=== PATIENT | female | born 1945 | race Caucasian/White ===

== ENCOUNTER 2020-12-19 08:00 | Outpatient (CLI) | payer BC, OTHER ==
[2020-12-22 13:21] LABS: FECAL OCCULT BLOOD (FIT) NEGATIVE (NEGATIVE)
== END 2020-12-19 23:59 | disposition home or self-care (01) ==
LOC: LAB.F 08:00
PROVIDERS: ATTEND Internal Medicine
DX: Z12.11 Encounter for screening for malignant neoplasm of colon (principal)
CPT/HCPCS: 82274

== ENCOUNTER 2021-02-08 09:01 | Outpatient (CLI) | payer BC ==
[2021-02-08 15:02] LABS: BASOPHILS % (AUTO) 0.6 %; EOSINOPHILS # (AUTO) 0.2 10^3/uL (0.0-0.7); EOSINOPHILS % (AUTO) 3.1 %; HCT - HEMATOCRIT 37.3 % (37.0-47.0); HGB - HEMOGLOBIN 11.4 g/dL (12.0-16.0); LYMPHOCYTES # (AUTO) 1.9 10^3/uL (1.5-3.5); LYMPHOCYTES % (AUTO) 29.1 %; MEAN CORPUSCULAR HEMOGLOBIN 27.5 pg (27.0-31.0); MEAN CORPUSCULAR HGB CONC 30.6 g/dL (32.0-36.0); MEAN CORPUSCULAR VOLUME 90.1 fL (81.0-99.0); MEAN PLATELET VOLUME 10.9 fL (7.9-10.8); MONOCYTES # (AUTO) 0.5 10^3/uL (0.0-1.0); MONOCYTES % (AUTO) 7.4 %; NEUTROPHILS # (AUTO) 3.9 10^3/uL (1.5-6.6); NEUTROPHILS % (AUTO) 59.5 %; PLT - PLATELET COUNT 255 10^3/uL (130-450); RED BLOOD COUNT 4.14 10^6/uL (4.20-5.40); RED CELL DISTRIBUTION WIDTH 12.7 % (12.0-15.0); WHITE BLOOD COUNT 6.5 x10^3/uL (4.8-10.8)
[2021-02-08 15:21] LABS: ALBUMIN 3.8 g/dL (3.2-5.5); ALBUMIN/GLOBULIN RATIO 1.1 (1.0-2.2); ALKALINE PHOSPHATASE 69 IU/L (42-121); ALT ALANINE AMINOTRANSFERASE 18 IU/L (10-60); AST ASPARTATE AMINOTRANSFERASE 20 IU/L (10-42); BILIRUBIN,TOTAL 0.7 mg/dL (0.2-1.0); BUN - BLOOD UREA NITROGEN 24 mg/dL (6-20); CALCIUM 9.3 mg/dL (8.5-10.3); CARBON DIOXIDE - CO2 26 mmol/L (21-32); CHLORIDE 99 mmol/L (101-111); CHOL/HDL RATIO 2.5 (<4.4); CHOLESTEROL 140 mg/dL; CREATININE 1.3 mg/dL (0.4-1.0); GFR - MDRD 40 (>89); GLUCOSE 89 mg/dL (70-100); HDL CHOLESTEROL 55 mg/dL; LDL CHOLESTEROL,CALCULATED 63 mg/dL; LDL/HDL RATIO 1.1 (<4.4); POTASSIUM 3.7 mmol/L (3.5-5.0); SODIUM 135 mmol/L (135-145); TOTAL PROTEIN 7.3 g/dL (6.7-8.2); TRIGLYCERIDES 112 mg/dL; VLDL CHOLESTEROL 22 mg/dL
[2021-02-08 15:25] LABS: CREATININE,URINE 148.4 mg/dL; MICROALBUM/CREATININE RATIO,UR 86.3 ug/mg (<30.0); MICROALBUMIN,URINE 12.8 mg/dL (0-300.0)
[2021-02-08 21:03] LABS: ESTIMATED AVERAGE GLUCOSE 117 mg/dL (70-100); HEMOGLOBIN A1c% 5.7 % (4.27-6.07)
== END 2021-02-08 09:02 | disposition home or self-care (01) ==
LOC: LAB.S 09:01
PROVIDERS: ATTEND Internal Medicine
DX: E11.9 Type 2 diabetes mellitus without complications (principal)
CPT/HCPCS: 36415; 80053; 80061; 82043; 82570; 83036; 83721; 85025

== ENCOUNTER 2021-05-07 15:14 | Outpatient (CLI) | payer BC ==
[2021-05-07 20:22] LABS: CALCIUM 9.8 mg/dL (8.5-10.3); CREATININE 1.4 mg/dL (0.4-1.0)
[2021-05-07 20:46] LABS: ESTIMATED AVERAGE GLUCOSE 126 mg/dL (70-100)
== END 2021-05-07 15:15 | disposition home or self-care (01) ==
LOC: LAB.S 15:14
PROVIDERS: ATTEND Nurse Practitioner
DX: E11.65 Type 2 diabetes mellitus with hyperglycemia (principal)
CPT/HCPCS: 36415; 80048; 83036

== ENCOUNTER 2021-09-13 09:48 | Outpatient (CLI) | payer BC ==
[2021-09-13 14:45] LABS: BASOPHILS % (AUTO) 0.4 %; EOSINOPHILS # (AUTO) 0.2 10^3/uL (0.0-0.7); EOSINOPHILS % (AUTO) 2.4 %; HCT - HEMATOCRIT 37.7 % (37.0-47.0); HGB - HEMOGLOBIN 12.3 g/dL (12.0-16.0); LYMPHOCYTES # (AUTO) 1.8 10^3/uL (1.5-3.5); LYMPHOCYTES % (AUTO) 25.1 %; MEAN CORPUSCULAR HEMOGLOBIN 29.6 pg (27.0-31.0); MEAN CORPUSCULAR HGB CONC 32.6 g/dL (32.0-36.0); MEAN CORPUSCULAR VOLUME 90.8 fL (81.0-99.0); MEAN PLATELET VOLUME 10.7 fL (7.9-10.8); MONOCYTES # (AUTO) 0.5 10^3/uL (0.0-1.0); MONOCYTES % (AUTO) 7.5 %; NEUTROPHILS # (AUTO) 4.5 10^3/uL (1.5-6.6); NEUTROPHILS % (AUTO) 64.2 %; PLT - PLATELET COUNT 225 10^3/uL (130-450); RED BLOOD COUNT 4.15 10^6/uL (4.20-5.40); RED CELL DISTRIBUTION WIDTH 12.5 % (12.0-15.0)
[2021-09-13 15:40] LABS: THYROID STIMULATING HORMONE 0.55 uIU/mL (0.34-5.60)
[2021-09-13 16:09] LABS: ALBUMIN 4.1 g/dL (3.2-5.5); ALBUMIN/GLOBULIN RATIO 1.4 (1.0-2.2); ALKALINE PHOSPHATASE 68 IU/L (42-121); ALT ALANINE AMINOTRANSFERASE 18 IU/L (10-60); AST ASPARTATE AMINOTRANSFERASE 19 IU/L (10-42); BILIRUBIN,TOTAL 0.8 mg/dL (0.2-1.0); BUN - BLOOD UREA NITROGEN 29 mg/dL (6-20); CALCIUM 10.1 mg/dL (8.5-10.3); CARBON DIOXIDE - CO2 28 mmol/L (21-32); CHLORIDE 103 mmol/L (101-111); CHOL/HDL RATIO 2.8 (<4.4); CHOLESTEROL 149 mg/dL; CREATININE 1.3 mg/dL (0.4-1.0); GFR - MDRD 40 (>89); GLUCOSE 104 mg/dL (70-100); HDL CHOLESTEROL 53 mg/dL; LDL CHOLESTEROL,CALCULATED 60 mg/dL; LDL/HDL RATIO 1.1 (<4.4); POTASSIUM 3.8 mmol/L (3.5-5.0); SODIUM 140 mmol/L (135-145); TOTAL PROTEIN 7.1 g/dL (6.7-8.2); TRIGLYCERIDES 179 mg/dL; VLDL CHOLESTEROL 36 mg/dL
[2021-09-14 05:10] LABS: HCV AB 0.1 s/co ratio (0.0-0.9)
== END 2021-09-13 09:49 | disposition home or self-care (01) ==
LOC: LAB.S 09:48
PROVIDERS: ATTEND Nurse Practitioner Family
DX: I10 Essential (primary) hypertension (principal); E78.5 Hyperlipidemia, unspecified; Z11.59 Encounter for screening for other viral diseases
CPT/HCPCS: 36415; 80053; 80061; 83721; 84443; 85025; 86803

== ENCOUNTER 2021-10-29 08:00 | Outpatient (CLI) | payer BC ==
--- NOTE | 2021-10-29 23:10 | XRAY Report ---
PROCEDURE: Wrist 3 View RT INDICATIONS: SPRAIN OF RIGHT WRIST TECHNIQUE: Three views of the wrist were acquired. COMPARISON: None FINDINGS: Bones: No fractures or dislocations. No suspicious bony lesions. 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 Soft tissues: No suspicious soft tissue calcifications. IMPRESSION: No fracture or acute finding identified. 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 Reviewed by: Hernando Dumont MD on 10/29/2021 11:09 PM PDT Approved by: Hernando Dumont MD on 10/29/2021 11:09 PM PDT Station ID: [id number]
== END 2021-10-29 23:59 | disposition home or self-care (01) ==
LOC: DI.S 08:00
PROVIDERS: ATTEND Emergency Medicine
DX: S63.521A Sprain of radiocarpal joint of right wrist, initial encounter (principal)

== ENCOUNTER 2022-04-23 07:40 | Outpatient (CLI) | payer BC ==
[2022-04-23 15:13] LABS: CALCIUM 10.2 mg/dL (8.5-10.3); CREATININE 1.4 mg/dL (0.4-1.0); POTASSIUM 3.9 mmol/L (3.5-5.0)
[2022-04-23 20:44] LABS: ESTIMATED AVERAGE GLUCOSE 128 mg/dL (70-100); HEMOGLOBIN A1c% 6.1 % (4.27-6.07)
== END 2022-04-23 07:41 | disposition home or self-care (01) ==
LOC: LAB.S 07:40
PROVIDERS: ATTEND Nurse Practitioner
DX: E11.65 Type 2 diabetes mellitus with hyperglycemia (principal)
CPT/HCPCS: 36415; 80048; 82043; 82570; 83036

== ENCOUNTER 2023-01-08 10:25 | Outpatient (CLI) | payer BC ==
[2023-01-08 14:44] LABS: BASOPHILS % (AUTO) 0.4 %; EOSINOPHILS # (AUTO) 0.2 10^3/uL (0.0-0.7); EOSINOPHILS % (AUTO) 2.3 %; HCT - HEMATOCRIT 42.8 % (37.0-47.0); HGB - HEMOGLOBIN 13.3 g/dL (12.0-16.0); LYMPHOCYTES # (AUTO) 1.8 10^3/uL (1.5-3.5); LYMPHOCYTES % (AUTO) 24.8 %; MEAN CORPUSCULAR HGB CONC 31.1 g/dL (32.0-36.0); MEAN CORPUSCULAR VOLUME 93.4 fL (81.0-99.0); MEAN PLATELET VOLUME 10.8 fL (7.9-10.8); MONOCYTES # (AUTO) 0.5 10^3/uL (0.0-1.0); MONOCYTES % (AUTO) 7.3 %; NEUTROPHILS # (AUTO) 4.6 10^3/uL (1.5-6.6); NEUTROPHILS % (AUTO) 64.5 %; PLT - PLATELET COUNT 232 10^3/uL (130-450); RED BLOOD COUNT 4.58 10^6/uL (4.20-5.40); WHITE BLOOD COUNT 7.1 x10^3/uL (4.8-10.8)
[2023-01-08 14:52] LABS: ESTIMATED AVERAGE GLUCOSE 108 mg/dL (70-100); HEMOGLOBIN A1c% 5.4 % (4.27-6.07)
[2023-01-08 16:29] LABS: ALBUMIN 4.3 g/dL (3.2-5.5); ALBUMIN/GLOBULIN RATIO 1.5 (1.0-2.2); BILIRUBIN,TOTAL 0.7 mg/dL (0.2-1.0); CALCIUM 9.9 mg/dL (8.5-10.3); CREATININE 1.2 mg/dL (0.6-1.3); TOTAL PROTEIN 7.2 g/dL (6.4-8.9)
[2023-01-08 16:44] LABS: CREATININE,URINE 42.1 mg/dL; MICROALBUMIN,URINE 2.4 mg/dL
== END 2023-01-08 10:26 | disposition home or self-care (01) ==
LOC: LAB.S 10:25
PROVIDERS: ATTEND Internal Medicine
DX: I12.9 Hypertensive chronic kidney disease with stage 1 through stage 4 chronic kidney disease, or unspecified chronic kidney disease (principal); E11.22 Type 2 diabetes mellitus with diabetic chronic kidney disease; N18.32 Chronic kidney disease, stage 3b
CPT/HCPCS: 36415; 80053; 82043; 82570; 83036; 85025

== ENCOUNTER 2023-04-15 10:51 | Outpatient (CLI) | payer BC ==
[2023-04-15 15:05] LABS: ALBUMIN/GLOBULIN RATIO 1.4 (1.0-2.2); BILIRUBIN,TOTAL 0.7 mg/dL (0.2-1.0); CALCIUM 9.8 mg/dL (8.5-10.3); CREATININE 1.1 mg/dL (0.6-1.3); POTASSIUM 3.9 mmol/L (3.5-4.5); TOTAL PROTEIN 6.8 g/dL (6.4-8.9)
[2023-04-15 15:55] LABS: CREATININE,URINE 97.3 mg/dL; MICROALBUM/CREATININE RATIO,UR 40.1 ug/mg (<30.0); MICROALBUMIN,URINE 3.9 mg/dL
== END 2023-04-15 10:52 | disposition home or self-care (01) ==
LOC: LAB.S 10:51
PROVIDERS: ATTEND Internal Medicine
DX: E11.22 Type 2 diabetes mellitus with diabetic chronic kidney disease (principal); N18.32 Chronic kidney disease, stage 3b
CPT/HCPCS: 36415; 80053; 82043; 82570

== ENCOUNTER 2023-04-17 17:21 | Outpatient (CLI) | payer BC ==
--- NOTE | 2023-04-18 18:46 | XRAY Report ---
PROCEDURE: Foot 1-2V RT INDICATIONS: OTHER SPECIFIED INJURIES OF RIGHT FOOT, INITIAL EN TECHNIQUE: 2 views of the foot were acquired. COMPARISON: None. FINDINGS: Bones: No fractures or dislocations. Severe first MTP joint space narrowing and juxta-articular oste ophytosis. Hallux valgus alignment with first MTP angle of 25 degrees. Pes planus alignment with calc aneal pitch of approximately 13 degrees. Mild diffuse IP joint space narrowing and juxta-articular os teophytosis. No suspicious bony lesions. Soft tissues: No suspicious soft tissue calcifications or masses. Plantar calcaneal enthesophyte. IMPRESSION: 1.No acute bony abnormality. 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 3.Pes planus. Reviewed by: Brittanie Orozco MD on 04/18/2023 6:44 PM PST Approved by: Brittanie Orozco MD on 04/18/2023 6:44 PM PST Station ID: [id number]
== END 2023-04-17 17:22 | disposition home or self-care (01) ==
LOC: DI.S 17:21
PROVIDERS: ATTEND Internal Medicine
DX: S99.821A Other specified injuries of right foot, initial encounter (principal); M19.071 Primary osteoarthritis, right ankle and foot; M20.11 Hallux valgus (acquired), right foot; M21.41 Flat foot [pes planus] (acquired), right foot